=== PATIENT | female | born 1980 | race Hispanic/Latino ===

== ENCOUNTER 2020-01-16 22:30 | Emergency (ER) | payer BC | END 2020-01-16 23:09 | LOC: EDH 22:30 | DX: Z02.83 Encounter for blood-alcohol and blood-drug test (principal); Z90.49 Acquired absence of other specified parts of digestive tract; Z90.710 Acquired absence of both cervix and uterus; Z72.0 Tobacco use | CPT/HCPCS: 36415 ==